=== PATIENT | male | born 1965 | race Caucasian/White ===

== ENCOUNTER 2017-03-25 09:57 | Day surgery (SDC) | payer OTHER ==
[~2017-03-25 09:57] MED LIST: BENTYL20 MG PO; CARAFATE1 GM PO; CIPRO500 MG PO; ELAVIL25 MG PO; FLAGYL500 MG PO; KADIAN30 MG PO; LEXAPRO10 MG PO; LORTAB 5-325 M1 EACH PO; LYRICA100 MG PO; LYRICA150 MG PO; MELOXICAM15 MG PO; MORPHINE SULFAT60 MG PO; MS CONTIN,ORAMO15 M1 PO; PERCOCET 10/1 TABLET PO; PERCOCET 7.51 TABLET PO; PROTONIX40 MG PO; RANITIDINE HCL150 MG PO; TRAZODONE HCL50 MG PO; ZANTAC150 MG PO; ZOFRAN ODT8 MG PO
[2017-03-25] MEDS ORDERED: EFFEXOR XR150 MG PO (10:21)
[2017-03-25] MEDS ORDERED: NEURONTIN400 MG PO (10:21)
[2017-03-25] MEDS ORDERED: SEROQUEL XR50 MG PO (10:22)
[2017-03-25] MEDS ORDERED: CELEBREX200 MG PO (10:23)
== END 2017-03-25 11:33 | disposition home or self-care (01) ==
LOC: PAIN 09:57 → SDC 10:45 → PAIN 10:45
DX: M51.16 Intervertebral disc disorders with radiculopathy, lumbar region (principal); K21.9 Gastro-esophageal reflux disease without esophagitis; R00.0 Tachycardia, unspecified; M79.7 Fibromyalgia; Z79.891 Long term (current) use of opiate analgesic; F17.210 Nicotine dependence, cigarettes, uncomplicated
CPT/HCPCS: J1030; J2250; J3010; S0020

== ENCOUNTER 2017-04-01 12:11 | Day surgery (SDC) | payer OTHER ==
[~2017-04-01 12:11] MED LIST changes: +CELEBREX200 MG PO; +EFFEXOR XR150 MG PO; +NEURONTIN400 MG PO; +SEROQUEL XR50 MG PO
== END 2017-04-01 14:10 | disposition home or self-care (01) ==
LOC: PAIN 12:11 → SDC 12:30 → PAIN 14:10
DX: M51.16 Intervertebral disc disorders with radiculopathy, lumbar region (principal); M79.7 Fibromyalgia; F17.210 Nicotine dependence, cigarettes, uncomplicated; F32.9 Major depressive disorder, single episode, unspecified; Z87.898 Personal history of other specified conditions; Z79.891 Long term (current) use of opiate analgesic; M25.561 Pain in right knee; M25.562 Pain in left knee
CPT/HCPCS: J1030; J2250; J3010; S0020

== ENCOUNTER 2017-07-20 13:39 | Day surgery (SDC) | payer OTHER ==
[~2017-07-20] VITALS: Ht 177.8 cm; Wt 81.6 kg
[~2017-07-20 13:39] MED LIST changes: +ATARAX,VISTARIL25 MG PO; +BRINTELLIX10 MG PO; +DIFLUCAN50 MG PO; -EFFEXOR XR150 MG PO; +OXYCODONE HCL10 MG PO; -PERCOCET 10/1 TABLET PO
== END 2017-07-20 15:50 | disposition home or self-care (01) ==
LOC: PAIN 13:39 → SDC 14:15 → PAIN 14:15
DX: M47.26 Other spondylosis with radiculopathy, lumbar region (principal); M51.16 Intervertebral disc disorders with radiculopathy, lumbar region; M54.5 Low back pain; G89.29 Other chronic pain; M79.7 Fibromyalgia; F17.210 Nicotine dependence, cigarettes, uncomplicated; Z79.891 Long term (current) use of opiate analgesic
CPT/HCPCS: J1030; J2250; J3010; S0020

== ENCOUNTER 2017-07-27 12:49 | Day surgery (SDC) | payer OTHER ==
[~2017-07-27] VITALS: Ht 177.8 cm; Wt 81.6 kg
== END 2017-07-27 14:32 | disposition home or self-care (01) ==
LOC: PAIN 12:49 → SDC 14:15 → PAIN 14:32
PROC: 015B3ZZ Destruction of Lumbar Nerve, Percutaneous Approach (ICD-10-PCS; principal; 2017-07-27)
DX: M47.26 Other spondylosis with radiculopathy, lumbar region (principal); M51.26 Other intervertebral disc displacement, lumbar region; F41.9 Anxiety disorder, unspecified; G89.29 Other chronic pain; M25.561 Pain in right knee; M25.562 Pain in left knee; F17.200 Nicotine dependence, unspecified, uncomplicated; Z88.0 Allergy status to penicillin
CPT/HCPCS: J1030; J2250; J3010; S0020

== ENCOUNTER 2017-11-02 10:19 | Day surgery (SDC) | payer OTHER ==
[~2017-11-02] VITALS: Ht 172.7 cm; Wt 81.2 kg
[~2017-11-02 10:19] MED LIST changes: +CYMBALTA30 MG PO; +DOLOPHINE HCL5 MG PO; +EPIPEN ADU0.3 MG/0.3 IM; +INDERAL20 MG PO; +SEROQUEL XR300 MG PO; -SEROQUEL XR50 MG PO; +ZANAFLEX2 M1 PO; +ZANTAC300 MG PO
== END 2017-11-02 11:55 | disposition home or self-care (01) ==
LOC: PAIN 10:19 → SDC 11:00 → PAIN 11:00
DX: M47.26 Other spondylosis with radiculopathy, lumbar region (principal); M51.16 Intervertebral disc disorders with radiculopathy, lumbar region; M54.5 Low back pain; G89.29 Other chronic pain; I10 Essential (primary) hypertension; K21.9 Gastro-esophageal reflux disease without esophagitis; F17.200 Nicotine dependence, unspecified, uncomplicated
CPT/HCPCS: J1030; J2250; J3010; S0020

== ENCOUNTER 2017-12-27 10:32 | Day surgery (SDC) | payer OTHER ==
[~2017-12-27] VITALS: Ht 177.8 cm; Wt 79.4 kg
[~2017-12-27 10:32] MED LIST changes: +ZOLOFT25 MG PO
== END 2017-12-27 13:20 | disposition home or self-care (01) ==
LOC: PAIN 10:32 → SDC 11:30 → PAIN 13:20
DX: M47.26 Other spondylosis with radiculopathy, lumbar region (principal); M51.16 Intervertebral disc disorders with radiculopathy, lumbar region; G89.29 Other chronic pain; I10 Essential (primary) hypertension; F41.9 Anxiety disorder, unspecified; Z79.891 Long term (current) use of opiate analgesic; F17.200 Nicotine dependence, unspecified, uncomplicated
CPT/HCPCS: J1100; J2250; J3010